=== PATIENT | male | born 1955 | race Caucasian/White ===

== ENCOUNTER → 2020-01-31 | Outpatient (CLI) | payer OTHER ==
[~2020-01-31] MED LIST: MELOXICAM7.5 MG PO; VENTOLIN HFA 1818 GM INH; VITAMIN B-121000 MC2 PO; VITAMIN C1000 MG PO; VITAMIN D250 MCG PO
== END ==
LOC: LAB 07:54
PROVIDERS: ATTEND Student in an Organized Health Care Education/Training Program
DX: Z01.818 Encounter for other preprocedural examination (principal); Z11.59 Encounter for screening for other viral diseases

== ENCOUNTER 2020-02-03 09:57 | Day surgery (SDC) | payer OTHER ==
[~2020-02-03] VITALS: Ht 182.9 cm; Wt 94.8 kg
[2020-02-03 10:53] VITALS: BP 120/67
[2020-02-03] MEDS ORDERED: COLACE 100 MG100 MG PO (12:22)
[2020-02-03] MEDS ORDERED: MIRALAX17 GM PO (12:23)
[2020-02-03] MEDS ORDERED: OXYCODONE HCL 55 MG PO (12:23)
[2020-02-03] MEDS ORDERED: ACETAMINOPHEN325 M1 PO (12:24)
[2020-02-03 13:17] VITALS: BP 120/67
--- NOTE | 2020-02-04 16:06 | PATH ---
[facility] [address] [place] [address] PATHOLOGY RPT PROCEDURE Name: ANTHONY TUCKER Room #: DEP [facility] [place] [id number] Admission: 02/03/20 Date of : 53 Discharge: 02/03/20 Report #: [id number] Path Case #: [id number] [facility] Accession Number: [id number] . 01 Material submitted: . thigh - LEFT THIGH MASS. Modifiers: left . 01 Clinical history: . LEFT THIGH MASS . 02 Diagnosis: Left thigh mass, excision: - Mature adipose tissue compatible with a lipoma. (IUV:pit 02/04/2020) QTP 02/04/2020 1326 Local . 02 Electronically signed: . Miley Nagy MD, Pathologist NPI- [id number] . 01 Gross description: . The specimen is received in formalin, labeled "Anthony Tucker, left thigh mass". Received is a segment of encapsulated yellow-mclean lobulated tissue measuring 7.5 x 5.1 x 2.6 cm in greatest dimensions. Sectioning reveals bright yellow cut surfaces with no grossly distinct nodules or lesions. The specimen is submitted representatively in cassette A1 and A2. (CAA; 02/03/2020) QAC/QAC 02/03/2020 1713 Local . 02 Pathologist provided ICD-10: D17.24 . 02 CPT . 206173 Specimen Comment: A courtesy copy of this report has been sent to [phone], [phone] Specimen Comment: [phone] Specimen Comment: Report sent to / DR SHAH Performed at: [address] [facility], [place], [place] [id number] MD Eldon Horner MD Phone: [phone] Performed at: [address], [place] [id number] MD Miley Nagy MD Phone: [phone]
== END 2020-02-03 13:17 | disposition home or self-care (01) ==
LOC: OR 09:57 → TBA 09:58 → OR 10:14
PROVIDERS: ATTEND Surgery
DX: D17.24 Benign lipomatous neoplasm of skin and subcutaneous tissue of left leg (principal); J43.9 Emphysema, unspecified; F17.210 Nicotine dependence, cigarettes, uncomplicated; Z98.890 Other specified postprocedural states; Z79.899 Other long term (current) drug therapy; Z87.19 Personal history of other diseases of the digestive system; Z90.49 Acquired absence of other specified parts of digestive tract; Z98.0 Intestinal bypass and anastomosis status
CPT/HCPCS: 50010; 50101; 50386; 50417; 56524; 56527; 62110; 62900; 70005